=== PATIENT | male | born 1950 | race Caucasian/White ===

== ENCOUNTER 2024-06-10 10:02 | Day surgery (SDC) | payer OTHER ==
[2024-06-10] VITALS (13 sets, daily range): BP systolic 85–119; BP diastolic 61–90
[~2024-06-10] VITALS: Ht 177.8 cm; Wt 126.5 kg
[~2024-06-10 10:02] MED LIST: ATOR10 PO; Adipex-P37.5 M1 PO; FINA5 PO; FURO80 PO; LEVOTHYROXINE200 MCG PO; NS 500 ML IV SCH; OMEP20ER PO; TAMS.4ER PO; ZOLP10 PO
[2024-06-10] MEDS ORDERED: propofoL 20 ML IV ONE (10:57)
--- NOTE | 2024-06-10 11:03 | NUR ---
06/10/24 1103 Maggy Rincon CONFIRMED AND REVIEWED H&P, MEDCICATIONS, ALLERGIES, MEDICAL HISTORY, RESPIRATORY HISTORY, VITAL SIGNS, 3-LEAD EKG, CONSENTS, AND PHYSICIAN ORDERS. PATIENT CONFIRMS NPO STATUS AND AGREES WITH SCHEDULED PROCEDURE. MONITOR INTACT WITH CONTINUOUS PULSE OXIMETRY, CAPNOGRAPHY, 3-LEAD EKG, INTERMITTENT BP. SUPPLEMENTAL O2 TO BE TITRATED THROUGHOUT PROCEDURE TO MAINTAIN O2 SATURATION ABOVE 90%. PATIENT DETERMINED TO BE ASA APPROPRIATE FOR PROPOFOL SEDATION PRIOR TO START OF PROCEDURE BY . MALLAMPATI CLASS 2 AIRWAY: COMPLETE VISUALIZATION OF THE UVULA.
--- NOTE | 2024-06-10 11:49 | NUR ---
Discharge instructions reviewed with patient. Patient verbalizes understanding. Copy given to patient to take home. Patient States Post-Procedure ride home has been arranged. Discharged via wheelchair to private car for ride home.
== END 2024-06-10 11:50 | disposition home or self-care (01) ==
LOC: ORSCMMR 10:02 → ORD 11:00 → ORSCMMR 11:00
PROVIDERS: Internal Medicine Gastroenterology
PROC: 0DBK8ZX Excision of Ascending Colon, Via Natural or Artificial Opening Endoscopic, Diagnostic (ICD-10-PCS; principal; 2024-06-10 11:00)
PROC: 0DBN8ZX Excision of Sigmoid Colon, Via Natural or Artificial Opening Endoscopic, Diagnostic (ICD-10-PCS; principal; 2024-06-10 11:00)
DX: Z12.11 Encounter for screening for malignant neoplasm of colon (principal); K63.5 Polyp of colon; Z85.46 Personal history of malignant neoplasm of prostate; Z98.84 Bariatric surgery status; Z86.0100 Personal history of colon polyps, unspecified; Z83.719 Family history of colon polyps, unspecified; E03.9 Hypothyroidism, unspecified; K21.9 Gastro-esophageal reflux disease without esophagitis; N40.0 Benign prostatic hyperplasia without lower urinary tract symptoms; E78.00 Pure hypercholesterolemia, unspecified; E66.01 Morbid (severe) obesity due to excess calories; Z68.39 Body mass index [BMI] 39.0-39.9, adult; Z79.899 Other long term (current) drug therapy; Z87.891 Personal history of nicotine dependence
CPT/HCPCS: 88305; J2704; J7040